=== PATIENT | male | born 1980 | race African-American/Black ===

== ENCOUNTER 2016-07-18 15:48 | Emergency (ER) | payer OTHER ==
[2016-07-18 16:35] LABS: EOSINOPHILS 3.8 % (0-7); HEMOGLOBIN 13.9 g/dL (13.5-17.5); IMMATURE GRANULOCYTES 0.2 % (0-5); LYMPHOCYTES 32.1 % (15-50); MCH 32.2 pg (26.0-34.0); MCHC 33.1 g/dL (31.0-37.0); MCV 97.2 fL (80.0-100.0); MEAN PLATELET VOLUME 8.9 fL (7.4-10.4); MONOCYTES 9.2 % (2-11); NEUTROPHILS 53.7 % (40-80); PLATELET COUNT 260 10x3/uL (130-400); RBC 4.32 10x6/uL (4.20-6.10); RDW 13.3 % (11.5-14.5)
[2016-07-18 16:48] LABS: ALBUMIN 3.3 g/dL (3.4-5.0); ALKALINE PHOSPHATASE 73 U/L (46-116); ALT (SGPT) 28 U/L (10-68); BILIRUBIN - TOTAL 0.16 mg/dL (0.2-1.3); CALC OSMOLALITY 287 mosm/kg (275-300); CALCIUM 8.5 mg/dL (8.5-10.1); CARBON DIOXIDE 31.7 mmol/L (21.0-32.0); CHLORIDE - SERUM 108 mmol/L (98-107); PROTEIN - SERUM 6.6 g/dL (6.4-8.2); SODIUM 145 mmol/L (136-145); UREA NITROGEN 14 mg/dL (7-18); eGFR NON AFRICAN AMERICAN 90 mL/min (90-120)
[2016-07-18 16:51] LABS: GLUCOSE 56 mg/dL (74-106)
== END 2016-07-18 19:48 | disposition left against medical advice (07) ==
LOC: D.ER 15:48
PROVIDERS: Emergency Medicine
DX: R53.1 Weakness (principal)

== ENCOUNTER 2019-08-21 11:54 | Emergency (ER) | payer SELFPAY ==
[~2019-08-21] VITALS: Ht 193 cm; Wt 76.4 kg
[2019-08-21 11:58] VITALS: Ht 193 cm; Wt 76.4 kg
[2019-08-21 12:17] LABS: BILIRUBIN NEGATIVE (NEGATIVE); GLUCOSE NEGATIVE (NEGATIVE); KETONE LARGE mg/dL (NEGATIVE); NITRITE NEGATIVE (NEGATIVE); SPECIFIC GRAVITY 1.025 (1.005-1.020); UROBILINOGEN NORMAL (NORMAL)
[2019-08-21 12:22] LABS: UDS - AMPHET POSITIVE QUAL (NEGATIVE); UDS - BARB NEGATIVE QUAL (NEGATIVE); UDS - BENZO NEGATIVE QUAL (NEGATIVE); UDS - COCAINE NEGATIVE QUAL (NEGATIVE); UDS - OPIATE NEGATIVE QUAL (NEGATIVE); UDS - PCP NEGATIVE QUAL (NEGATIVE); UDS - THC POSITIVE QUAL (NEGATIVE)
[2019-08-21 12:41] VITALS: BP 132/78
== END 2019-08-21 12:46 | disposition home or self-care (01) ==
LOC: D.ER 11:54
PROVIDERS: Family Medicine
DX: R44.1 Visual hallucinations (principal); T50.905A Adverse effect of unspecified drugs, medicaments and biological substances, initial encounter